=== PATIENT | male | born 1980 | race African-American/Black ===

== ENCOUNTER 2021-12-30 15:43 | Emergency (ER) | payer BC, OTHER ==
[~2021-12-30] VITALS: Ht 172.7 cm; Wt 107.0 kg
[2021-12-30] MEDS ORDERED: SODIUM CHLORIDE 0.9% 1000ML 1,000 ML IV STA ×3 (15:54)
[2021-12-30] MEDS ORDERED: Vancomycin IV 1 GM in SODIUM CHLORIDE 0.9% 250ML 250 ML IV STA (15:54)
[2021-12-30] MEDS ORDERED: ACETAMINOPHEN 325 MG TAB ONE (16:10)
[2021-12-30] MEDS ORDERED: CEFEPIME 2 GM in SODIUM CHLORIDE 0.9% 100 ML IV ONE (16:15)
[2021-12-30 16:17] LABS: BASOPHILS % 0.3 % (0.0-1.0); EOSINOPHILS % 0.1 % (0.0-6.0); HEMATOCRIT 45.2 % (38.2-49.6); LYMPHOCYTES # (AUTO) 0.5 (1.0-3.2); LYMPHOCYTES % 4.5 % (18.0-39.1); MEAN CORPUSCULAR HEMOGLOBIN 26.9 pg (28-32); MEAN CORPUSCULAR VOLUME 86.8 fL (81-99); MONOCYTES # (AUTO) 1.2 (0.2-0.8); MONOCYTES % 10.3 % (4.4-11.3); NEUTROPHILS # (AUTO) 9.9 (2.1-6.9); NEUTROPHILS % 84.4 % (38.7-80.0); PLATELET COUNT 297 x10e3/uL (140-360); RED BLOOD COUNT 5.21 x10e6/uL (4.3-5.7); RED CELL DISTRIBUTION WIDTH 12.1 % (11.7-14.4)
[2021-12-30 16:28] LABS: INR 1.23; PARTIAL THROMBOPLASTIN TIME 29.5 seconds (23.8-35.5); PROTHROMBIN TIME 16.6 seconds (11.9-14.5)
[2021-12-30 16:31] LABS: CREATINE KINASE 330 IU/L (30-200)
[2021-12-30 16:33] LABS: ALBUMIN/GLOBULIN RATIO 1.2 (0.8-2.0); ANION GAP 17.3 mmol/L (8-16); CALCIUM 8.8 mg/dL (8.4-10.2); CREATININE, SERUM 0.91 mg/dL (0.72-1.25); POTASSIUM 4.3 mmol/L (3.5-5.1)
[2021-12-30 16:34] LABS: CLARITY,URINE CLEAR (CLEAR); COLOR,URINE YELLOW (YELLOW); KETONES,URINE NEGATIVE (NEGATIVE); LEUKOCYTE ESTERASE ,URINE NEGATIVE (NEGATIVE); NITRITE,URINE NEGATIVE (NEGATIVE); PROTEIN,URINE DIPSTICK NEGATIVE (NEGATIVE); URINE UROBILINOGEN 0.2 mg/dL (0.2 - 1)
[2021-12-30 16:44] LABS: BACTERIA,URINE RARE /HPF
[2021-12-30 16:45] LABS: MUCUS,URINE FEW (RARE)
[2021-12-30] MEDS ORDERED: ACETAMINOPHEN 325 MG TAB PO ONE (16:45)
== END 2021-12-30 20:05 | disposition home or self-care (01) ==
LOC: ER 16:05
DX: A41.9 Sepsis, unspecified organism (principal); U07.1 COVID-19; R50.9 Fever, unspecified; R10.11 Right upper quadrant pain; R11.0 Nausea; I10 Essential (primary) hypertension; E78.5 Hyperlipidemia, unspecified; K76.9 Liver disease, unspecified; M10.9 Gout, unspecified
CPT/HCPCS: 36415; 71046; 74176; 80053; 81001; 82550; 82553; 83518; 83605; 83880; 84484; 85025; 85610; 85730; 87040; 87070; 87086; 99284; J7030; U0002

== ENCOUNTER → 2022-02-04 | Outpatient (CLI) | payer BC ==
[~2022-02-04] MED LIST: IOPAMIDOL 370 MG/ML 100 ML INFUS..BTL INJ ONE
[2022-02-04 10:15] LABS: CREATININE, SERUM 0.86 mg/dL (0.72-1.25)
== END ==
LOC: CT 09:18
PROVIDERS: ATTEND Internal Medicine
DX: N28.89 Other specified disorders of kidney and ureter (principal)
CPT/HCPCS: 36415; 74178; 82565; 84520; Q9967

== ENCOUNTER 2022-04-04 10:41 | Inpatient (IN) | payer BC ==
[2022-03-30 09:02] LABS: BASOPHILS # (AUTO) 0.1 (0.0-0.1); BASOPHILS % 0.9 % (0.0-1.0); EOSINOPHILS # (AUTO) 0.2 (0.0-0.4); EOSINOPHILS % 3.3 % (0.0-6.0); HEMATOCRIT 42.6 % (38.2-49.6); HEMOGLOBIN 13.5 g/dL (14.0-18.0); LYMPHOCYTES # (AUTO) 1.8 (1.0-3.2); LYMPHOCYTES % 32.4 % (18.0-39.1); MEAN CORPUSCULAR HEMOGLOBIN 27.4 pg (28-32); MEAN CORPUSCULAR HGB CONC 31.7 g/dL (31-35); MEAN CORPUSCULAR VOLUME 86.6 fL (81-99); MONOCYTES # (AUTO) 0.5 (0.2-0.8); MONOCYTES % 8.9 % (4.4-11.3); NEUTROPHILS % 54.1 % (38.7-80.0); PLATELET COUNT 282 x10e3/uL (140-360); RED BLOOD COUNT 4.92 x10e6/uL (4.3-5.7); RED CELL DISTRIBUTION WIDTH 11.9 % (11.7-14.4)
[2022-03-30 09:19] LABS: ALBUMIN 3.8 g/dL (3.5-5.0); ALBUMIN/GLOBULIN RATIO 1.1 (0.8-2.0); ANION GAP 15.2 mmol/L (8-16); CALCIUM 8.8 mg/dL (8.4-10.2); CREATININE, SERUM 0.8 mg/dL (0.72-1.25); POTASSIUM 4.2 mmol/L (3.5-5.1)
[~2022-04-04] VITALS: Ht 172.7 cm; Wt 103.0 kg
[~2022-04-04 10:41] MED LIST changes: +ALLOPURINOL300 MG PO; +ATORVASTATIN CA10 MG PO; +B12 PO; +BENICAR20 MG PO; +FISH OIL 1,0001 EAC2; -IOPAMIDOL 370 MG/ML 100 ML INFUS..BTL INJ ONE; +MULTI-VITAMIN1 EACH PO; +OMEPRAZOLE40 MG PO; +ZETIA10 MG PO
[2022-04-04] MEDS ORDERED: LEVOFLOXACIN 500MG/D5W 100ML 100 ML IV ONE (11:10)
[2022-04-04] MEDS ORDERED: MIDAZOLAM HCL 2 MG/2 ML VIAL ONE (13:33)
[2022-04-04] MEDS ORDERED: FENTANYL CITRATE/PF 100MCG/2 ML INJ ONE ×2 (13:33→18:39)
[2022-04-04] MEDS ORDERED: MANNITOL 25% 12.5GM/50ML 50 ML ONE (13:50)
[2022-04-04] MEDS ORDERED: MORPHINE SULFATE 1 MG/ML 30ML PCA IV PRN (18:00)
[2022-04-04] MEDS ORDERED: ACETAMINOPHEN 1000 MG/100 ML IV PRN (18:00)
[2022-04-04] MEDS ORDERED: DIPHENHYDRAMINE HCL INJ 50 MG/ML VIAL IM PRN (18:00)
[2022-04-04] MEDS ORDERED: NALOXONE HCL INJ 0.4 MG/ML AMP IV PRN (18:00)
[2022-04-04] MEDS ORDERED: MORPHINE SULFATE 1 MG/ML 30ML PCA ONE (18:29)
[2022-04-04 18:30] LABS: BASOPHILS # (AUTO) 0.1 (0.0-0.1); BASOPHILS % 0.5 % (0.0-1.0); EOSINOPHILS % 0.1 % (0.0-6.0); HEMATOCRIT 41.5 % (38.2-49.6); HEMOGLOBIN 13.4 g/dL (14.0-18.0); LYMPHOCYTES % 10.5 % (18.0-39.1); MEAN CORPUSCULAR HEMOGLOBIN 27.2 pg (28-32); MEAN CORPUSCULAR HGB CONC 32.3 g/dL (31-35); MEAN CORPUSCULAR VOLUME 84.3 fL (81-99); MONOCYTES % 5.2 % (4.4-11.3); NEUTROPHILS % 83.1 % (38.7-80.0); PLATELET COUNT 266 x10e3/uL (140-360); RED BLOOD COUNT 4.92 x10e6/uL (4.3-5.7); RED CELL DISTRIBUTION WIDTH 11.9 % (11.7-14.4)
[2022-04-04 18:47] LABS: ANION GAP 15.2 mmol/L (8-16); CALCIUM 8.2 mg/dL (8.4-10.2); CREATININE, SERUM 0.78 mg/dL (0.72-1.25); POTASSIUM 4.2 mmol/L (3.5-5.1)
[2022-04-04] MEDS ORDERED: ONDANSETRON HCL INJ 2MG/ML 2ML 2 MG/ML VIAL ONE (19:34)
[2022-04-04] MEDS: ONDANSETRON HCL INJ 2MG/ML 2ML 2 MG/ML VIAL IV PRN (20:22)
[2022-04-04 20:30] VITALS: BP 135/71
[2022-04-04] MEDS: D5.45%NS/KCL 20MEQ 1,000 ML IV SCH (22:18)
[2022-04-04 23:41] VITALS: BP 135/71
[2022-04-05] VITALS (9 sets, daily range): BP systolic 119–133; BP diastolic 71–80
[2022-04-05] MEDS: ONDANSETRON HCL INJ 2MG/ML 2ML 2 MG/ML VIAL IV PRN ×2 (05:18→11:30)
[2022-04-05] MEDS: D5.45%NS/KCL 20MEQ 1,000 ML IV SCH (06:24)
[2022-04-05 07:44] LABS: BASOPHILS % 0.1 % (0.0-1.0); HEMOGLOBIN 12.2 g/dL (14.0-18.0); LYMPHOCYTES # (AUTO) 0.8 (1.0-3.2); LYMPHOCYTES % 5.7 % (18.0-39.1); MEAN CORPUSCULAR HEMOGLOBIN 27.4 pg (28-32); MEAN CORPUSCULAR HGB CONC 32.1 g/dL (31-35); MEAN CORPUSCULAR VOLUME 85.2 fL (81-99); MONOCYTES # (AUTO) 1.7 (0.2-0.8); MONOCYTES % 11.8 % (4.4-11.3); NEUTROPHILS # (AUTO) 11.7 (2.1-6.9); PLATELET COUNT 252 x10e3/uL (140-360); RED BLOOD COUNT 4.46 x10e6/uL (4.3-5.7); RED CELL DISTRIBUTION WIDTH 11.5 % (11.7-14.4)
[2022-04-05 08:04] LABS: ANION GAP 12.3 mmol/L (8-16); CALCIUM 8.3 mg/dL (8.4-10.2); CREATININE, SERUM 0.81 mg/dL (0.72-1.25); POTASSIUM 4.3 mmol/L (3.5-5.1)
[2022-04-05] MEDS ORDERED: MORPHINE SULFATE 1 MG/ML 30ML PCA IV PRN (08:45)
[2022-04-05] MEDS ORDERED: ACETAMINOPHEN 325 MG TAB PO PRN (08:45)
[2022-04-05] MEDS ORDERED: HYDRALAZINE HCL 20 MG/ML VIAL IV PRN (08:45)
[2022-04-05] MEDS: DEXTROSE 5%/0.9% SOD CHL 1,000 ML IV SCH ×2 (09:04→19:20)
[2022-04-05] MEDS: ACETAMINOPHEN 1000 MG/100 ML IV PRN ×2 (09:04→14:16)
[2022-04-05] MEDS ORDERED: ROCURONIUM BROMIDE 10 MG/ML 5ML VIAL IV ONE (12:18)
[2022-04-05] MEDS ORDERED: ONDANSETRON HCL INJ 2MG/ML 2ML 2 MG/ML VIAL ONE (12:18)
[2022-04-05] MEDS ORDERED: PROPOFOL IV EMULSION 10 MG/ML 20 ML VIAL ONE (12:18)
[2022-04-05] MEDS ORDERED: SEVOFLURANE INHAL SOLN 250 ML PEN BTL ONE (12:18)
[2022-04-05] MEDS ORDERED: DEXAMETHASONE SOD PHOS INJ 4 MG/ML SDV ONE (12:18)
[2022-04-05] MEDS ORDERED: LIDOCAINE HCL 2% LOCAL INJ 5 ML SDV VIAL INJ ONE (12:18)
[2022-04-05] MEDS ORDERED: POVIDONE IODINE 0.05% 0.05 % ML PO ONE (12:18)
[2022-04-05] MEDS: LEVOFLOXACIN 500MG/D5W 100ML 100 ML IV SCH (14:45)
[2022-04-06] VITALS (7 sets, daily range): BP systolic 122–141; BP diastolic 66–84
[2022-04-06] MEDS: DEXTROSE 5%/0.9% SOD CHL 1,000 ML IV SCH ×3 (02:30→17:39)
[2022-04-06 07:11] LABS: BASOPHILS % 0.1 % (0.0-1.0); HEMATOCRIT 38.5 % (38.2-49.6); HEMOGLOBIN 12.1 g/dL (14.0-18.0); LYMPHOCYTES # (AUTO) 1.1 (1.0-3.2); LYMPHOCYTES % 8.1 % (18.0-39.1); MEAN CORPUSCULAR HEMOGLOBIN 27.1 pg (28-32); MEAN CORPUSCULAR HGB CONC 31.4 g/dL (31-35); MEAN CORPUSCULAR VOLUME 86.3 fL (81-99); MONOCYTES # (AUTO) 1.6 (0.2-0.8); MONOCYTES % 11.5 % (4.4-11.3); NEUTROPHILS # (AUTO) 10.8 (2.1-6.9); NEUTROPHILS % 80.1 % (38.7-80.0); PLATELET COUNT 260 x10e3/uL (140-360); RED BLOOD COUNT 4.46 x10e6/uL (4.3-5.7); RED CELL DISTRIBUTION WIDTH 11.8 % (11.7-14.4)
[2022-04-06 07:29] LABS: CALCIUM 8.5 mg/dL (8.4-10.2); CREATININE, SERUM 0.88 mg/dL (0.72-1.25)
[2022-04-06] MEDS: ONDANSETRON HCL INJ 2MG/ML 2ML 2 MG/ML VIAL IV PRN (09:32)
[2022-04-06] MEDS: LEVOFLOXACIN 500MG/D5W 100ML 100 ML IV SCH (14:03)
[2022-04-06] MEDS ORDERED: BISACODYL 10 MG SUPP PR PRN (17:00)
[2022-04-07] VITALS (8 sets, daily range): BP systolic 130–139; BP diastolic 65–86
[2022-04-07] MEDS: DEXTROSE 5%/0.9% SOD CHL 1,000 ML IV SCH ×3 (01:04→19:55)
[2022-04-07 07:42] LABS: BASOPHILS % 0.3 % (0.0-1.0); EOSINOPHILS % 0.1 % (0.0-6.0); HEMATOCRIT 35.6 % (38.2-49.6); HEMOGLOBIN 11.1 g/dL (14.0-18.0); LYMPHOCYTES # (AUTO) 1.2 (1.0-3.2); LYMPHOCYTES % 9.5 % (18.0-39.1); MEAN CORPUSCULAR HEMOGLOBIN 27.1 pg (28-32); MEAN CORPUSCULAR HGB CONC 31.2 g/dL (31-35); MEAN CORPUSCULAR VOLUME 86.8 fL (81-99); MONOCYTES # (AUTO) 1.6 (0.2-0.8); MONOCYTES % 12.8 % (4.4-11.3); NEUTROPHILS # (AUTO) 9.6 (2.1-6.9); NEUTROPHILS % 77.1 % (38.7-80.0); PLATELET COUNT 246 x10e3/uL (140-360); RED CELL DISTRIBUTION WIDTH 11.9 % (11.7-14.4)
[2022-04-07 07:56] LABS: ANION GAP 12.1 mmol/L (8-16); CALCIUM 8.7 mg/dL (8.4-10.2); CREATININE, SERUM 0.93 mg/dL (0.72-1.25); POTASSIUM 4.1 mmol/L (3.5-5.1)
[2022-04-07] MEDS ORDERED: Morphine 4mg INJECTION 4 MG/ML INJ IV PRN (09:15)
[2022-04-07] MEDS ORDERED: HYDROCODONE/APAP 10MG-325MG TAB PO PRN (09:15)
[2022-04-07] MEDS ORDERED: ACETAMINOPHEN/CODEINE 300MG - 30MG TAB PO PRN (09:45)
[2022-04-07] MEDS: SENNA-S TABLET PO SCH ×2 (10:53→17:12)
[2022-04-07] MEDS: LEVOFLOXACIN 500MG/D5W 100ML 100 ML IV SCH (13:42)
[2022-04-07] MEDS ORDERED: DOCUSATE SODIUM 100 MG CAP PO SCH (17:00)
[2022-04-08] VITALS: BP 141/75
[2022-04-08 04:00] VITALS: BP 143/76
[2022-04-08 05:41] LABS: BASOPHILS % 0.4 % (0.0-1.0); EOSINOPHILS # (AUTO) 0.1 (0.0-0.4); EOSINOPHILS % 1.2 % (0.0-6.0); HEMATOCRIT 30.4 % (38.2-49.6); HEMOGLOBIN 9.7 g/dL (14.0-18.0); LYMPHOCYTES # (AUTO) 1.8 (1.0-3.2); LYMPHOCYTES % 19.9 % (18.0-39.1); MEAN CORPUSCULAR HEMOGLOBIN 27.2 pg (28-32); MEAN CORPUSCULAR HGB CONC 31.9 g/dL (31-35); MEAN CORPUSCULAR VOLUME 85.2 fL (81-99); MONOCYTES # (AUTO) 1.1 (0.2-0.8); MONOCYTES % 12.2 % (4.4-11.3); NEUTROPHILS # (AUTO) 5.9 (2.1-6.9); NEUTROPHILS % 66.1 % (38.7-80.0); PLATELET COUNT 238 x10e3/uL (140-360); RED BLOOD COUNT 3.57 x10e6/uL (4.3-5.7); RED CELL DISTRIBUTION WIDTH 11.9 % (11.7-14.4)
[2022-04-08 06:11] LABS: ANION GAP 10.6 mmol/L (8-16); CALCIUM 8.1 mg/dL (8.4-10.2); CREATININE, SERUM 0.83 mg/dL (0.72-1.25); POTASSIUM 3.6 mmol/L (3.5-5.1)
[2022-04-08 07:45] VITALS: BP 126/86
[2022-04-08] MEDS: SENNA-S TABLET PO SCH (09:08)
[2022-04-08 09:19] VITALS: BP 126/86
[2022-04-08] MEDS ORDERED: ONDANSETRON HCL 4 MG ORAL DISINTEGRATING TAB PO PRN (10:00)
[2022-04-08] MEDS ORDERED: IRON SUCROSE 100 MG in SODIUM CHLORIDE 0.9% 100 ML IV SCH (11:00)
[2022-04-08 11:56] VITALS: BP 137/79
[2022-04-08] MEDS ORDERED: LEVOFLOXACIN 500 MG TAB PO SCH (14:00)
[2022-04-08] MEDS ORDERED: TYLENOL#3 PO (14:19)
[2022-04-09] MEDS ORDERED: PANTOPRAZOLE SOD 40 MG TABEC PO SCH (07:30)
== END 2022-04-08 14:40 | disposition home or self-care (01) | DRG 657 ==
LOC: OR 10:41 → MED/SURG2 18:09 → MED/SURG 18:37
PROVIDERS: ADMIT Internal Medicine; ATTEND Internal Medicine
PROC: 0TB00ZZ Excision of Right Kidney, Open Approach (ICD-10-PCS; principal; 2022-04-04 15:10)
DX: C64.1 Malignant neoplasm of right kidney, except renal pelvis (principal); D62 Acute posthemorrhagic anemia; R35.1 Nocturia; R39.14 Feeling of incomplete bladder emptying; R80.9 Proteinuria, unspecified; G89.18 Other acute postprocedural pain; I10 Essential (primary) hypertension; E66.09 Other obesity due to excess calories; Z68.34 Body mass index [BMI] 34.0-34.9, adult; E78.5 Hyperlipidemia, unspecified; K21.9 Gastro-esophageal reflux disease without esophagitis; Z88.0 Allergy status to penicillin; Z20.822 Contact with and (suspected) exposure to COVID-19
CPT/HCPCS: 36415; 71045; 80048; 80053; 83735; 85025; 86850; 86900; 88304; 88307; 88311; 88329; 88342; 93005; 94799; 99251; J1100; J1756; J1956; J2001; J2150; J2250; J2270; J2405; J3010; J7042; J7050

== ENCOUNTER → 2022-08-26 | Outpatient (CLI) | payer BC ==
[~2022-08-26] MED LIST changes: +IOPAMIDOL 370 MG/ML 100 ML INFUS..BTL INJ ONE; +TYLENOL#3 PO
[2022-08-26 08:41] LABS: CREATININE, SERUM 0.96 mg/dL (0.72-1.25)
== END ==
LOC: CT 07:25
PROVIDERS: ATTEND Student in an Organized Health Care Education/Training Program
DX: C64.1 Malignant neoplasm of right kidney, except renal pelvis (principal)
CPT/HCPCS: 36415; 71260; 82565; 84520; Q9967